=== PATIENT | female | born 1935 | race Caucasian/White ===

== ENCOUNTER 2016-04-04 17:54 | Inpatient (IN) | payer MEDICARE, OTHER ==
[~2016-04-04] VITALS: Ht 154.9 cm; Wt 81.1 kg
[2016-04-04 18:36] VITALS: BP 175/85; PULSE 100; RESP 16; O2SAT 97
--- NOTE | 2016-04-04 19:24 | ED.REPORT ---
HPI-Abd Pain F 40 and Over Date of Service Apr 04, 2016 ED Provider: Dr. Pradeep Qiu MD An 80 year old female with a history of chronic back pain presents to the ED complaining of abdominal pain that began earlier this morning. Her pain radiates from the left side to the right. The abdominal pain is associated with nausea and vomiting. She reports 3 episodes of vomiting today. Patient recently saw a chiropractor and reports feeling similar pain that resolved shortly after onset. She denies fever or abnormal bowel movements. She states that she is currently taking anticoagulates and tramadol. Patient is a difficult historian. Nursing Notes Stated Complaint: ABDOMINAL PAIN Chief Complaint: Female Abdominal Pain Nursing Notes Reviewed: Yes Allergies: Coded Allergies: No Known Allergies (Unverified , 04/04/16) General Time Seen by MD: 19:22 Chief Complaint Abdominal pain Hx Obtained From: Patient Arrived By: Walk-in Sudden in Onset?: No Onset Occurred: 9 - 12 hours ago Symptom Duration: Since onset Progression since Onset: Unchanged Location: : Diffuse Quality: Painful Radiation: : Does not radiate Severity: Current: Mild Severity: Maximum: Mild Associated with: Reports: Nausea, Vomiting, Denies: Fever (x) Pertinent Negative: Pt denies other symptoms Recent Healthcare: No recent doctor visit, No recent hospitalization Risk Factors )( AAA Risk Stratification Risk factors reviewed Past Medical History Past Medical History Chronic back pain Reports: Coronary artery disease, Hyperlipidemia, Hypertension, Denies: Cancer, Diabetes mellitus Past Surgical History None reported. Smoking History Unknown if Ever Smoker Social History Other Social History: Good social support, Local resident Ambulatory Status Independent Review of Systems Constitutional: Denies: Chills, Fever Respiratory: Denies: Shortness of breath Cardiovascular: Denies: Chest pain GI: Reports: Abdominal pain, Nausea, Vomiting Complete sys rev & neg: except as marked. Neurologic: Denies: Change LOC Physical Exam Vital Signs Vital Signs (First) Date Time Temp Pulse Resp B/P Pulse Ox O2 Delivery O2 Flow Rate FiO2 04/04/16 18:36 36.1 100 16 175/85 97 Room Air Initial VS: Reviewed Head / Eyes: Atraumatic, Normocephalic, PERRL Extremities: Vascular intact, Neuro intact, No tenderness Skin: Warm, Dry, No cyanosis Neurologic: Alert, Oriented, Nonfocal Psychiatric: Mood/affect normal, Behavior normal, Normal thought content General/Constitutional: Awake, Alert Respiratory / Chest: Atraumatic, Breath sounds NL, Breath sounds = bilat, No respiratory distress Cardiovascular: Heart rate NL, Regular rhythm, Heart sounds NL Lower Ext Edema: Positive: Bilateral 1+ Abdomen: Atraumatic, Soft, No guarding Tenderness/Guarding/Rebound: Positive: Tender diffuse Back: Atraumatic, Inspection NL Interpretation & Diagnostics Lab Results Interpretation Result Diagram: 04/04/16193304/04/161933 Test 04/04/16 19:34 04/04/16 20:05 04/04/16 21:09 White Blood Count 16.7th/mm3 (3.8-10.1) Red Blood Count 4.99mil/mm3 (3.90-5.20) Hemoglobin 14.7g/dL (12.0-15.6) Hematocrit 44.0% (35.0-46.0) Mean Corpuscular Volume 88.2fL (81-100) Mean Corpuscular Hemoglobin 29.5pg (27.0-35.0) Mean Corpuscular Hemoglobin Concent 33.4% (32.0-37.0) Red Cell Distribution Width 14.5% (12.3-15.4) Platelet Count 314bil/L (150-400) Neutrophils (%) (Auto) 78.0% (40-74) Lymphocytes (%) (Auto) 12.9% (14-46) Monocytes (%) (Auto) 8.3% (4-12) Eosinophils (%) (Auto) 0.3% (0-5) Basophils (%) (Auto) 0.2% (0-3) Sodium Level 135mEq/L (134-144) Potassium Level 3.7mEq/L (3.5-5.2) Chloride Level 93mEq/L (97-108) Carbon Dioxide Level 26mmol/L (18-29) Blood Urea Nitrogen 18mg/dL (8-27) Creatinine 0.77mg/dL (0.57-1.00) Estimat Glomerular Filtration Rate 103mL/min (>59) Glucose Level 131mg/dL (60-99) Calcium Level 9.9mg/dL (8.5-10.1) Magnesium Level 1.8mg/dL (1.6-2.6) Total Bilirubin 0.6mg/dL (0.0-1.2) Aspartate Amino Transf (AST/SGOT) 18U/L (0-50) Alanine Aminotransferase (ALT/SGPT) 10U/L (0-32) Alkaline Phosphatase 62U/L (25-165) Total Protein 7.9g/dL (6.4-8.4) Albumin 4.5g/dL (3.4-5.0) Lipase 15U/L (13-60) Hold Purple Top Tube Received (Received) Hold Blue Top Tube Received (Received) Hold [place] Top Tube Received (Received) Hold [place] Top Tube Received (Received) Urine Color Yellow (YELLOW) Urine Appearance Hazy (CLEAR,HAZY) Urine pH 6.0 (5.0-8.0) Urine Specific [place] 1.025 (1.003-1.035) Urine Protein Negativemg/dL (NEG,TRACE) Urine Glucose (UA) Negativemg/dL (NEGATIVE) Urine Ketones Tracemg/dL (NEGATIVE) Urine Occult Blood Trace (NEGATIVE) Urine Nitrite Negative (NEGATIVE) Urine Bilirubin Negative (NEGATIVE) Urine Urobilinogen Normalmg/dL (NORMAL) Urine Leukocyte Esterase Trace (NEGATIVE) Urine RBC 0-2/hpf (0-2) Urine WBC 0-5/hpf (0-5) Urine Epithelial Cells None/hpf (NONE-MOD) Urine Crystals None seen (NONE SEEN) Urine Bacteria Few/hpf (NONE-FEW) Urine Hyaline Casts None/lpf (NONE) Urine Granular Casts None seen (NONE SEEN) Urine Waxy Casts None seen (NONE SEEN) Urine Red Blood Cell Casts None seen (NONE SEEN) Urine White Blood Cell Casts None seen (NONE SEEN) Urine Mucus None seen (None Seen) Urine Trichomonas None seen (NONE SEEN) Urine Yeast None (NONE SEEN) Urinalysis Comment None Urine Culture Reflexed Indicated ECG Interpretation ECG Interpretation: Sinus Rhythm Rate 94 Time: 19:58 Interpreted by: ED physician CT Abd / Pelvis Interpretation IMPRESSION: 1. Multiple dilated loops of small bowel compatible with small bowel obstruction. 2. No free fluid or air. 3. Sequela prior granulomatous disease involving the right lung, mediastinal and hilar lymph nodes in the spleen. 4. Atherosclerosis including the visualized coronary vasculature. Dictated by: Carmela Vazquez MD, PhD on 04/04/2016 at 21:34 Study type: Abdominal CT IV contrast, Abdom CT oral contrast Interpretation / Wet Read by: Interpret - Radiologist Re-Eval/Medical Decision Re-Evaluation/Progress : Time of Eval: 22:14 Patient Status: Condition improved Re-Evaluation/Progress Note: Patient is rechecked. She is informed of her CT results and diagnosis. All of the patient's questions are addressed. She understands and agrees with the treatment plan to admit. Consultation : Referral / Consult Name: Tiara Albarado DO Consulted With: Hospitalist Call Returned at: 22:50 Nurse Case Management: Will see patient, Agrees with eval, Agrees with plan, Accepts admit Counseled Regarding: Diagnosis, Lab results, Need for admission Discharge & Departure Primary Impression: Small bowel obstruction Disposition: ADMITTED TO HOSPITAL Discharge Condition All VS Reviewed: Yes Condition: Stable Referrals: [facility] Scribe Attestation Portions of this note were transcribed by Carrie Hurd. I, Dr. Qiu personally performed the history, physical exam and medical decision-making; I reviewed and confirmed the accuracy of the information in the transcribed note. Signed by: Angel Meraz, 04/04/16 2255. Pradeep Qiu MD Apr 04, 2016 19:24 CARRIE HURD Apr 04, 2016 19:41
[2016-04-04] MEDS ORDERED: Ondansetron 2 mg/mL 2 mL Inj IVPUSH PRN (19:40)
[2016-04-04 20:44] LABS: BASOPHILS % (AUTO) 0.2 % (0-3); EOSINOPHILS % (AUTO) 0.3 % (0-5); MONOCYTES % (AUTO) 8.3 % (4-12); Mean Corpuscular Hemoglobin 29.5 pg (27.0-35.0); Mean Corpuscular Volume 88.2 fL (81-100); Platelet Count 314 bil/L (150-400)
[2016-04-04 20:54] LABS: Magnesium 1.8 mg/dL (1.6-2.6)
[2016-04-04 21:24] VITALS: BP 170/80; PULSE 99; RESP 17; O2SAT 98
[2016-04-04 21:37] LABS: APPEARANCE,URINE HAZY (CLEAR,HAZY); COLOR,URINE YELLOW (YELLOW); OCCULT BLOOD,URINE TRACE (NEGATIVE); UROBILINOGEN,URINE NORMAL (NORMAL)
--- NOTE | 2016-04-04 21:42 | DRSVH ---
PROCEDURE: CT ABDOMEN AND PELVIS WITH CONTRAST ([id number]) INDICATIONS: abd pain TECHNIQUE: After the administration of intravenous contrast, 5 mm thick sections acquired from the diaphragm to the symphysis. 5 mm coronal and sagittal reformats were acquired. For radiation dose reduction, the following was used: automated exposure control, adjustment of mA and/or kV according to patient siz e. COMPARISON: None. FINDINGS: Image quality: Excellent. ABDOMEN: Lung bases: Lung bases are clear. Calcified mediastinal and right hilar lymph nodes are noted kan tible sequela prior granulomatous disease. Calcified granulomas noted in the right lung base. Heart size is normal. Solid organs: Liver and spleen are normal in size and enhancement. Punctate calcifications noted in the spleen compatible with sequela prior granulomatous disease. Gallbladder is within normal limits. Biliary system is non dilated. Pancreas enhances normally. No adrenal nodules. Kidneys demonstrat e normal size and enhancement, without hydronephrosis. Peritoneum and bowel: Multiple dilated loops of small bowel are noted. Loops of small bowel are dil ated up to 3.9 cm in diameter. The transition zone to normal caliber small bowel is noted in the pro ximal to mid ileum. No bowel wall thickening is identified. No free fluid or air. Scattered diverti culi noted in the colon without evidence of diverticulitis. The appendix is normal. Nodes and vessels: No retroperitoneal or mesenteric adenopathy by size criteria. Aorta and inferior vena cava are normal in size. Scattered atherosclerotic ossifications in the abdominal and pelvic va sculature. Miscellaneous: No ventral hernias. PELVIS: Genitourinary: Bladder wall thickness is normal. Miscellaneous: No inguinal hernias or adenopathy. Bones: No suspicious bony lesions. No vertebral body compression fractures. Degenerative disc disea se and facet arthropathy are noted in the spine. IMPRESSION: 1. Multiple dilated loops of small bowel compatible with small bowel obstruction. 2. No free fluid or air. 3. Sequela prior granulomatous disease involving the right lung, mediastinal and hilar lymph nodes i n the spleen. 4. Atherosclerosis including the visualized coronary vasculature. Dictated by: Carmela Vazquez MD, PhD on 04/04/2016 at 21:34 Approved by: Carmela Vazquez MD, PhD on 04/04/2016 at 21:41
[2016-04-04 22:55] VITALS: BP 170/80; PULSE 99; RESP 17; O2SAT 98
[2016-04-04] MEDS ORDERED: Alum-Mag Hydrox-Simeth 30 mL Suspension PO PRN (23:05)
[2016-04-04] MEDS ORDERED: Polyethylene Glycol (PEG) 17 Gm Powder PO PRN (23:05)
[2016-04-04] MEDS ORDERED: Acetaminophen IV 1,000 MG in IV Premix 1 EACH IV PRN (23:10)
[2016-04-04 23:34] VITALS: BP 162/89; PULSE 101; RESP 20; O2SAT 97
[2016-04-05] VITALS (8 sets, daily range): BP systolic 147–164; BP diastolic 80–93; PULSE 78–100; RESP 18–20; O2SAT 96–100
--- NOTE | 2016-04-05 00:21 | PCM.HPMED ---
Subjective Date of Service Apr 04, 2016 Primary Provider: Admitting Physician: Tiara Albarado DO Primary Care Physician: Ryan Ocampo MD Attending Physician: Tiara Albarado DO Admit Status: From the Emergency Department Chief Complaint: Abdominal Pain, Nausea and Vomiting History of Present Illness: 80yo woman presented to the ED with complaint of abdominal pain since earlier in the morning with associated nausea and vomiting. The pain radiates from the left side to the right. Vomiting x3 today. She denies fever or abnormal bowel movements. She reports taking tramadol and an anticoagulant. Her PCP is Review of Systems: 14point review of systems was obtained and is negative except as above. Allergies Coded Allergies: No Known Allergies (Unverified , 04/04/16) PMH Chronic back pain Coronary artery disease, Hyperlipidemia, Hypertension, Hypothyroidism Denies: Cancer, Diabetes mellitus Surgical History None Social History Hx Alcohol Use: No Hx Substance Use: No Smoking Status: Unknown if Ever Smoker Exam Vital Signs Vital Sign - Last Date Time Temp Pulse Resp B/P Pulse Ox O2 Delivery O2 Flow Rate FiO2 04/04/16 22:55 36.6 99 17 170/80 98 Room Air Exam General: Alert, Oriented X3, Cooperative, No Acute Distress Head: Normocephalic, atraumatic Eyes: PERRLA, EOMI, sclera anicteric ENT: Mucous Membranes Moist/[place] Chest & Lungs: Clear to auscultation bilaterally with no crackles, wheezes, or rhonchi. Cardiovascular: Regular Rate/Rhythm, Normal S1, Normal S2, No Murmurs/Rubs/ Gallops Abdomen: Tender at RUQ and left side, Non-distended, No masses, Normoactive bowel tones, Soft Extremities: No cyanosis/clubbing/edema bilaterally Neurological: Grossly Neurologically Intact Lab and Diagnostics Labs Laboratory Tests Test 04/04/16 19:34 04/04/16 20:05 04/04/16 21:09 White Blood Count 16.7th/mm3 (3.8-10.1) Red Blood Count 4.99mil/mm3 (3.90-5.20) Hemoglobin 14.7g/dL (12.0-15.6) Hematocrit 44.0% (35.0-46.0) Mean Corpuscular Volume 88.2fL (81-100) Mean Corpuscular Hemoglobin 29.5pg (27.0-35.0) Mean Corpuscular Hemoglobin Concent 33.4% (32.0-37.0) Red Cell Distribution Width 14.5% (12.3-15.4) Platelet Count 314bil/L (150-400) Neutrophils (%) (Auto) 78.0% (40-74) Lymphocytes (%) (Auto) 12.9% (14-46) Monocytes (%) (Auto) 8.3% (4-12) Eosinophils (%) (Auto) 0.3% (0-5) Basophils (%) (Auto) 0.2% (0-3) Sodium Level 135mEq/L (134-144) Potassium Level 3.7mEq/L (3.5-5.2) Chloride Level 93mEq/L (97-108) Carbon Dioxide Level 26mmol/L (18-29) Blood Urea Nitrogen 18mg/dL (8-27) Creatinine 0.77mg/dL (0.57-1.00) Estimat Glomerular Filtration Rate 103mL/min (>59) Glucose Level 131mg/dL (60-99) Calcium Level 9.9mg/dL (8.5-10.1) Magnesium Level 1.8mg/dL (1.6-2.6) Total Bilirubin 0.6mg/dL (0.0-1.2) Aspartate Amino Transf (AST/SGOT) 18U/L (0-50) Alanine Aminotransferase (ALT/SGPT) 10U/L (0-32) Alkaline Phosphatase 62U/L (25-165) Total Protein 7.9g/dL (6.4-8.4) Albumin 4.5g/dL (3.4-5.0) Lipase 15U/L (13-60) Hold Purple Top Tube Received (Received) Hold Blue Top Tube Received (Received) Hold [place] Top Tube Received (Received) Hold [place] Top Tube Received (Received) Urine Color Yellow (YELLOW) Urine Appearance Hazy (CLEAR,HAZY) Urine pH 6.0 (5.0-8.0) Urine Specific [place] 1.025 (1.003-1.035) Urine Protein Negativemg/dL (NEG,TRACE) Urine Glucose (UA) Negativemg/dL (NEGATIVE) Urine Ketones Tracemg/dL (NEGATIVE) Urine Occult Blood Trace (NEGATIVE) Urine Nitrite Negative (NEGATIVE) Urine Bilirubin Negative (NEGATIVE) Urine Urobilinogen Normalmg/dL (NORMAL) Urine Leukocyte Esterase Trace (NEGATIVE) Urine RBC 0-2/hpf (0-2) Urine WBC 0-5/hpf (0-5) Urine Epithelial Cells None/hpf (NONE-MOD) Urine Crystals None seen (NONE SEEN) Urine Bacteria Few/hpf (NONE-FEW) Urine Hyaline Casts None/lpf (NONE) Urine Granular Casts None seen (NONE SEEN) Urine Waxy Casts None seen (NONE SEEN) Urine Red Blood Cell Casts None seen (NONE SEEN) Urine White Blood Cell Casts None seen (NONE SEEN) Urine Mucus None seen (None Seen) Urine Trichomonas None seen (NONE SEEN) Urine Yeast None (NONE SEEN) Urinalysis Comment None Urine Culture Reflexed Indicated Microbiology 04/04/16 Urine Culture, Received Pending Result Diagram: 04/04/16193304/04/161933 X-Rays, CTs and MRIs CT w/ contrast of abd/pelv IMPRESSION: 1. Multiple dilated loops of small bowel compatible with small bowel obstruction. 2. No free fluid or air. 3. Sequela prior granulomatous disease involving the right lung, mediastinal and hilar lymph nodes in the spleen. 4. Atherosclerosis including the visualized coronary vasculature. Dictated by: Carmela Vazquez MD, PhD on 04/04/2016 at 21:34 12-lead ECG NSR rate of 94 Assessment & Plan 80yo woman with SBO that started with abdominal pain, nausea, and vomiting on the morning of 04/04/16, confirmed by CT of abdomen and pelvis 1. SBO -NPO -NS IV 80mls/hr -Ondansetron 4mg Q4hr PRN IV for nausea and vomiting -Acetaminophen 1000mg IV q6h prn for pain -this is likely to resolve with bowel rest, if symptoms worsen consider surgical consult -repeat BMP in morning 2. Leukocytosis, likely acute phase reaction -repeat CBC with diff in the morning 3. Hypertension, 170/80 here, asymptomatic -Metoprolol 5mg IV push PRN for SBP greater than 160 or DBP greater than 90 4. Hyperlipidemia, hold home meds while NPO 5. History of nosebleeds with NSAIDs -avoid NSAIDs 6. Hypothyroidism, hold home meds while NPO Bowel regimen as needed Pain Evaluation: Adequate Pain Control VTE Prophylaxis: SCDs Resuscitation Status: DNR/DNI:Do Not Resuscitate/Intubate Limited Interventions: Medications and IV Fluid Attending Statement The patient was seen and examined together with house staff on 04/04/2016 and I agree with the history, exam and plan as outlined in the note above. Mynor Serna DO Apr 05, 2016 00:13 Tiara Albarado DO Apr 05, 2016 02:41
[2016-04-05] MEDS: 0.9% Sodium Chloride 1,000 ML IV SCH ×2 (01:06→14:55)
[2016-04-05] MEDS: Ondansetron 2 mg/mL 2 mL Inj IVPUSH PRN ×4 (01:45→13:40)
[2016-04-05] MEDS ORDERED: TRAM50TA2 PO (01:58)
[2016-04-05] MEDS ORDERED: OMEG1CAP56 PO (01:58)
[2016-04-05] MEDS ORDERED: LEVO25TA5 PO (01:58)
[2016-04-05] MEDS ORDERED: HYDR25TA4 PO (01:58)
[2016-04-05] MEDS ORDERED: TIMO1DRO4 BOTH_EYES (01:58)
[2016-04-05] MEDS ORDERED: SIMV40TA5 PO (01:58)
[2016-04-05] MEDS ORDERED: CYCL5TAB PO (01:58)
[2016-04-05] MEDS ORDERED: BRIM10DR14 BOTH_EYES (01:58)
[2016-04-05] MEDS ORDERED: RANI150T11 PO (01:58)
[2016-04-05] MEDS ORDERED: LISI40TA PO (01:58)
[2016-04-05] MEDS ORDERED: DOXY25TA46 PO (01:58)
[2016-04-05] MEDS ORDERED: CHOL200047 PO (01:58)
[2016-04-05] MEDS: MeTOProlol 1 mg/mL 5 mL Inj IVPUSH PRN ×2 (04:27→10:13)
--- NOTE | 2016-04-05 04:36 | NUR ---
Admit Patient arrived to [facility] room 1028 around 2330. Able to stand and walk from ER stretcher to [facility] bed. Gait steady. A&Ox4, answering questions appropriately. IV patent and infusing appropriately. Admit completed with patient to best of her ability as patient is a poor historian. Med rec complete. Cristiano given x2 for N/V. Received IV Tylenol for pain management, but states it gave her a "sour stomach". Paged Dr. Serna @ [phone]. Received order for Morphine 2mg IVP once. Aware of NPO status and compliant. Oriented to room and call light. Addendum: 04/05/16 at 0636 by GILES PAEZ RN Patient would like to hold off on Morphine dose at this time. Patient aware to ask for it when she feels like she needs it. Will pass on info to oncoming day shift RN. [facility] page sent to Dr. Serna to notify him of med rec being complete. Metoprolol IVP PRN given per MD orders for increased BP.
[2016-04-05 06:34] LABS: BASOPHILS % (AUTO) 0.2 % (0-3); EOSINOPHILS % (AUTO) 0.5 % (0-5); MONOCYTES % (AUTO) 11.8 % (4-12); Mean Corpuscular Hemoglobin 29.9 pg (27.0-35.0); Mean Corpuscular Volume 87.6 fL (81-100); Platelet Count 324 bil/L (150-400)
[2016-04-05] MEDS: Heparin 5,000 Unit/mL Inj SUBQ SCH ×2 (08:30→16:30)
--- NOTE | 2016-04-05 09:27 | NUR ---
Social Work: Initial Assessment Data: Pt is an 80 y/o female admitted for SBO. Pt's PCP is Dr Ocampo, pt's insurance is Medicare with [employer] supp. Readmit score not listed. EMR reviewed. HYBRID DERIVATIVES TRADER met with pt at bedside, role explained. Pt states that she lives alone in a single story home where she uses no DME. Pt states she has no hx of HH or SNF, drives, has no LTC or VA benefits, and is not a caregiver. Pt states she has been moving around in the room during hospitalization. HYBRID DERIVATIVES TRADER will continue to follow for possible HH need. Assessment: Pt who is independent at baseline. Plan: Pt will d/c home via POV when medically stable with daughter. HYBRID DERIVATIVES TRADER will continue to follow for possible HH need. SHARRON Weiss Addendum: 04/05/16 at 0929 by ROSA M ACOSTA SS Amended: Links added.
[2016-04-05] MEDS: BRIMONIDINE 0.15% BOTH_EYES SCH ×3 (10:06→20:53)
[2016-04-05] MEDS: Lisinopril 40 Tablet PO SCH (10:08)
--- NOTE | 2016-04-05 10:42 | PCM.PNMED ---
Subjective Date of Service Apr 05, 2016 Subjective - Pt seen and examined this morning. - c/o diffuse abdominal pain and nausea. States that pain is less than yesterday. - Denies any more episodes of vomiting since yesterday. Exam Vital Signs Vital Sign - Last Date Time Temp Pulse Resp B/P Pulse Ox O2 Delivery O2 Flow Rate FiO2 04/05/16 10:07 87 04/05/16 09:43 36.5 18 164/80 98 Room Air Intake and Output 04/04/16 04/04/16 04/05/16 Cumulative From/Thru 15:00 23:00 07:00 04/04/16 18:36 - 04/05/16 06:38 Intake Total 309 ml 309 ml Output Total 580 ml 580 ml Balance -271 ml -271 ml Intake Oral 0 ml 0 ml IV Total 309 ml 309 ml Output Urine Total 250 ml 250 ml Emesis 330 ml 330 ml # Voids 2 2 # Bowel Movements 0 0 Exam General: Alert, Oriented X3, Cooperative, No Acute Distress Head: Normocephalic, atraumatic Eyes: PERRLA, EOMI, sclera anicteric ENT: Mucous Membranes Moist/[place] Chest & Lungs: Clear to auscultation bilaterally with no crackles, wheezes, or rhonchi. Cardiovascular: Regular Rate/Rhythm, Normal S1, Normal S2, No Murmurs/Rubs/ Gallops Abdomen: Tender at RUQ and left side, Non-distended, No masses, Normoactive bowel tones, Soft Extremities: No cyanosis/clubbing/edema bilaterally Neurological: Grossly Neurologically Intact IVs and Medications Medications Reviewed: Medications were reviewed in detail Lab and Diagnostics Result Diagram: 04/05/1661704/05/16617 X-Rays, CTs and MRIs CT w/ contrast of abd/pelv IMPRESSION: 1. Multiple dilated loops of small bowel compatible with small bowel obstruction. 2. No free fluid or air. 3. Sequela prior granulomatous disease involving the right lung, mediastinal and hilar lymph nodes in the spleen. 4. Atherosclerosis including the visualized coronary vasculature. Dictated by: Carmela Vazquez MD, PhD on 04/04/2016 at 21:34 12-lead ECG NSR rate of 94 Assessment & Plan 80 year old woman with SBO that started with abdominal pain, nausea, and vomiting on the morning of 04/04/16, confirmed by CT of abdomen and pelvis Small bowel obstruction - NPO - NS IV 80mls/hr - Ondansetron 4mg Q4hr PRN IV for nausea and vomiting - Acetaminophen 1000mg IV q6h prn for pain - this is likely to resolve with bowel rest, if symptoms worsen consider surgical consult Leukocytosis, likely acute phase reaction - WBC still elevated but trendign down 12.3 <-- 16.7 - Normal neutrophils Hypertension - BP:164 / 80 - Metoprolol 5mg IV push PRN for SBP greater than 160 or DBP greater than 90 Hyperlipidemia, - statins on hold as she is NPO History of nosebleeds with NSAIDs - avoid NSAIDs Hypothyroidism, hold home meds while NPO Bowel regimen as needed Pain Evaluation: Adequate Pain Control VTE Prophylaxis: SCDs VTE Mechanical Devices: Intermittant Pneumatic CD Resuscitation Status: DNR/DNI:Do Not Resuscitate/Intubate Limited Interventions: Medications and IV Fluid Jasen Bocanegra MD Apr 05, 2016 10:42
[2016-04-05] MEDS: Timolol 0.5% 5 mL Ophthalmic Solution BOTH_EYES SCH ×2 (11:22→20:30)
[2016-04-05] MEDS: Pantoprazole 20 mg ER24 Tablet PO SCH (20:30)
[2016-04-05] MEDS: MetoCLOpramide 5 mg/mL 2 mL Inj IVPUSH PRN (20:52)
[2016-04-06] VITALS (7 sets, daily range): BP systolic 106–159; BP diastolic 66–89; PULSE 75–97; RESP 18–20; O2SAT 95–98
[2016-04-06] MEDS: Heparin 5,000 Unit/mL Inj SUBQ SCH ×3 (00:30→16:30)
--- NOTE | 2016-04-06 01:02 | NUR ---
Nausea/refusal Pt reporting nausea/vomiting has subsided after administration of 5mg Reglan IVP at the beginning of the shift. Pt refused to have heparin shot despite education, pt feels she "does not need blood thinner" since she is up walking so often. Pt also declining to wear SCDs for same reason. Addendum: 04/06/16 at 0113 by CARLY RUBY RN Pt had 150 cc of light brown liquid stool.
[2016-04-06] MEDS: MetoCLOpramide 5 mg/mL 2 mL Inj IVPUSH PRN ×2 (02:21→10:19)
[2016-04-06] MEDS: 0.9% Sodium Chloride 1,000 ML IV SCH ×2 (02:21→14:13)
[2016-04-06] MEDS: Lisinopril 40 Tablet PO SCH (10:06)
[2016-04-06] MEDS: Pantoprazole 20 mg ER24 Tablet PO SCH ×2 (10:06→22:15)
[2016-04-06] MEDS: BRIMONIDINE 0.15% BOTH_EYES SCH ×3 (10:07→20:30)
[2016-04-06] MEDS: Timolol 0.5% 5 mL Ophthalmic Solution BOTH_EYES SCH ×2 (10:08→20:30)
--- NOTE | 2016-04-06 15:44 | NUR ---
Social Work Continued Discharge Planning: SW met with patient at bedside to discuss discharge plan. Patient resides home alone and SW discussed HHC options for patient at discharge. Patient states choice to discharge home with [facility] services. [facility] choice list offered. Patient states choice as HHC via [facility]. SW provided face to face to HHC rep Ry. Access also provided. SW to follow up with [facility] company upon discharge. PLAN: Home with [facility] via [facility], Access provided and face to face given. SW to follow. Pham MCDERMOTT
--- NOTE | 2016-04-06 19:22 | PCM.PNMED ---
Subjective Date of Service Apr 06, 2016 Exam Vital Signs Vital Sign - Last Date Time Temp Pulse Resp B/P Pulse Ox O2 Delivery O2 Flow Rate FiO2 04/06/16 17:07 36.8 84 20 159/83 96 Room Air Intake and Output 04/05/16 04/05/16 04/06/16 Cumulative From/Thru 15:00 23:00 07:00 04/04/16 18:36 - 04/06/16 05:48 Intake Total 0 ml 1954 ml 2263 ml Output Total 1250 ml 750 ml 2580 ml Balance -1250 ml 1204 ml -317 ml Intake Oral 0 ml 0 ml 0 ml IV Total 1954 ml 2263 ml Output Urine Total 1000 ml 500 ml 1750 ml Stool Total 150 ml 150 ml Emesis 250 ml 100 ml 680 ml # Voids 2 # Bowel Movements 0 Exam Gen.- A+ O 3 no apparent distress. Heavy white female in bed Eyes- open conjunctiva clear, pupils equal nonicteric ENT- ears normal, nose normal Neck- supple/trach midline CVS- RRR no murmur or gallop Lungs- CTA GI-decreased bowel sounds, somewhat tender but no rebound or guarding, generous pannus Musc- moving 4 no obvious deformity Neuro- cranial nerves II through XII intact to gross examination, nonfocal Skin- warm and dry, no rashes/lesions/wounds noted Psych- pleasant and appropriate, Lab and Diagnostics Result Diagram: 04/05/16 0618 04/05/16 0618 X-Rays, CTs and MRIs CT w/ contrast of abd/pelv IMPRESSION: 1. Multiple dilated loops of small bowel compatible with small bowel obstruction. 2. No free fluid or air. 3. Sequela prior granulomatous disease involving the right lung, mediastinal and hilar lymph nodes in the spleen. 4. Atherosclerosis including the visualized coronary vasculature. Dictated by: Carmela Vazquez MD, PhD on 04/04/2016 at 21:34 12-lead ECG NSR rate of 94 Assessment & Plan 80 year old woman with SBO that started with abdominal pain, nausea, and vomiting on the morning of 04/04/16, confirmed by CT of abdomen and pelvis. Clinically resolving, starting clears Pepcid and hopefully will be able to DC IV fluids 04/06 Small bowel obstruction -clinically resolving -Clear liquids, advance diet as tolerated - NS IV 80mls/hr, may DC IV fluids if tolerating by mouth - Ondansetron 4mg Q4hr PRN IV for nausea and vomiting - Acetaminophen 1000mg IV q6h prn for pain - this is likely to resolve with bowel rest, if symptoms worsen consider surgical consult Leukocytosis, likely acute phase reaction - WBC still elevated but trendign down 12.3 <-- 16.7 - Normal neutrophils Hypertension- labile SBP 109-159 04/06 no axn 04/06 - BP:164 / 80 - Metoprolol 5mg IV push PRN for SBP greater than 160 or DBP greater than 90 Hyperlipidemia, - statins on hold as she is NPO History of nosebleeds with NSAIDs - avoid NSAIDs Hypothyroidism, hold home meds while NPO Bowel regimen as needed VTE Prophylaxis: SCDs VTE Mechanical Devices: Intermittant Pneumatic CD Resuscitation Status: DNR/DNI:Do Not Resuscitate/Intubate Limited Interventions: Medications and IV Fluid Bhavik Grimes MD Apr 06, 2016 19:22
[2016-04-06] MEDS: Magnesium Hydroxide 10 mL Oral Concentration PO ONE ×2 (20:46→21:07)
[2016-04-07] MEDS: Heparin 5,000 Unit/mL Inj SUBQ SCH ×2 (00:30→07:51)
[2016-04-07] MEDS: 0.9% Sodium Chloride 1,000 ML IV SCH ×2 (01:10→13:40)
[2016-04-07 03:07] VITALS: BP 100/67; PULSE 80; RESP 18; O2SAT 96
--- NOTE | 2016-04-07 04:20 | NUR ---
Diet MD order for pt to have clear liquid diet, advance as tolerated. Pt so far tolerating water, juice and chicken broth without any nausea. Order to also d/c IV fluids when tolerating PO. Pt is now SL. No pain or other complaints from pt.
[2016-04-07 05:44] VITALS: BP 115/64; PULSE 85; RESP 16; O2SAT 95
[2016-04-07] MEDS: Timolol 0.5% 5 mL Ophthalmic Solution BOTH_EYES SCH (07:50)
[2016-04-07] MEDS: BRIMONIDINE 0.15% BOTH_EYES SCH (07:50)
[2016-04-07] MEDS: Lisinopril 40 Tablet PO SCH (07:51)
[2016-04-07] MEDS: Pantoprazole 20 mg ER24 Tablet PO SCH (07:51)
--- NOTE | 2016-04-07 10:40 | NUR ---
Social Work Readiness for Discharge: Plan remains as home with [facility] services via [facility]. Patient tolerating diet at this time per report in rounds. SW spoke to [facility] rep Raza who was made aware of potential discharge for today. No anticipated discharge needs identified at this time. SW to follow. PLAN: Home with [facility] via [facility], pending clinical course. SW to follow. Pham MCDERMOTT
[2016-04-07 10:50] VITALS: PULSE 82
[2016-04-07 11:09] VITALS: BP 136/85; PULSE 79; RESP 18; O2SAT 96
--- NOTE | 2016-04-07 13:12 | PCM.DIMED ---
Discharge Instructions Date of Service Apr 07, 2016 Dates of Hospitalization Apr 04, 2016 at 22:41 Discharge Diagnosis Discharge Diagnosis Small bowel obstruction Medication Instructions New medication called Reglan/metoclopramide will help empty your stomach. This medication as a side effect of abnormal motion if you notice this stop it immediately the motion abnormality should correct themselves. If you continue the medication the abnormal motions may become permanent. Test Results CT scan showed a small bowel obstruction. This may recur. If he feels the bloating and recurrence try to switch over to the low residual diet or just liquids and take some laxatives to see if it passes. Diet Other (please given instructions for low residual diet) Activity No restrictions Call your provider Other (abdominal pain/bloating/nausea and vomiting) Patient Instructions Slowly resume your regular diet as you feel better. Follow-up Provider: Ryan Ocampo MD Follow-up with PCP in: Other (call for follow-up appointment if you are doing well he may not need to see him.) Attending's Statement This may be an ongoing problem that may require surgical attention in the future. For now to appears that his passed, please try to be vigilant and treat yourself with laxatives and low residual diet and perhaps he may be able to avoid hospitalization. If that fails and you develop persistent nausea and vomiting and cannot hold medications down please come to the hospital to be admitted for IV treatment and further evaluation. Bhavik Grimes MD Apr 07, 2016 13:12
[2016-04-07] MEDS ORDERED: ESOM40CA41 PO (13:19)
[2016-04-07] MEDS ORDERED: MAGN800O PO (13:19)
[2016-04-07] MEDS ORDERED: METO-301 PO (13:19)
--- NOTE | 2016-04-07 13:23 | PCM.DC.MED ---
Discharge Summary Date of Service Apr 07, 2016 Dates of Hospitalization Date of Hospital Admission Apr 04, 2016 at 22:41 Date of Discharge: Apr 07, 2016 Providers: Admitting Physician: Tiara Albarado DO Primary Care Physician: Ryan Ocampo MD Attending Physician: Tiara Albarado DO Diagnosis at Time of Discharge Diagnosis at Time of Discharge Small bowel obstruction Consultations None Procedures XRay, CTs & MRIs CT w/ contrast of abd/pelv IMPRESSION: 1. Multiple dilated loops of small bowel compatible with small bowel obstruction. 2. No free fluid or air. 3. Sequela prior granulomatous disease involving the right lung, mediastinal and hilar lymph nodes in the spleen. 4. Atherosclerosis including the visualized coronary vasculature. Dictated by: Carmela Vazquez MD, PhD on 04/04/2016 at 21:34 ECG 12 Lead NSR rate of 94 Brief History 80yo woman presented to the ED with complaint of abdominal pain since earlier in the morning with associated nausea and vomiting. The pain radiates from the left side to the right. Vomiting x3 today. She denies fever or abnormal bowel movements. She reports taking tramadol and an anticoagulant. Her PCP is Hospital Course 80 year old woman with SBO that started with abdominal pain, nausea, and vomiting on the morning of 04/04/16, confirmed by CT of abdomen and pelvis. Clinically resolving, starting clears Pepcid and hopefully will be able to DC IV fluids 04/06. On discharge are started this patient on Reglan as I think that that will help her with heartburn/reflux symptoms in addition to a PPI. I gave her milk of magnesia to help clear her bowels. After discharging her I noted that her blood pressure was low on our less BP medications than she normally takes at home. This will probably need to be adjusted by primary care provider in the next few days. Small bowel obstruction -clinically resolving 04/06 patient tolerated food and was discharged in stable improved condition 04/07. She was sent home with Reglan, and instructions that if she is bloating she should take milk of magnesia and trying to go to the low residual diet and see if it clears on its own. If she can treat for herself she does not need to come to the hospital. If not and there is no resolution she understands that surgery would be the next option. It is most likely that it was surgery and scarring that caused the problem in the first place if she understands why this is not the desired outcome/solution Leukocytosis, likely acute phase reaction, down to 12.52/5 not rechecked. Hypertension- labile SBP 100-136 04/07, on lisinopril 40 mg QD, may need to have BP medications adjusted this and decreased/stopped Hyperlipidemia, - statins on hold in hospital resumed on discharge History of nosebleeds with NSAIDs- avoid NSAIDs Hypothyroidism, Levoxyl resumed on discharge Bowel regimen as needed Exam Vital Signs (Last) Date Time Temp Pulse Resp B/P Pulse Ox O2 Delivery O2 Flow Rate FiO2 04/07/16 11:09 36.7 79 18 136/85 96 Room Air Test 04/04/16 19:34 04/04/16 20:05 04/04/16 21:09 04/05/16 06:18 Magnesium Level 1.8mg/dL (1.6-2.6) Total Bilirubin 0.6mg/dL (0.0-1.2) Aspartate Amino Transf (AST/SGOT) 18U/L (0-50) Alanine Aminotransferase (ALT/SGPT) 10U/L (0-32) Alkaline Phosphatase 62U/L (25-165) Total Protein 7.9g/dL (6.4-8.4) Albumin 4.5g/dL (3.4-5.0) Lipase 15U/L (13-60) Hold Purple Top Tube Received (Received) Prothrombin Time 10.7sec (8.1-12.5) Prothromb Time International Ratio 1.00ratio Hold Blue Top Tube Received (Received) Hold [place] Top Tube Received (Received) Hold [place] Top Tube Received (Received) Urine Color Yellow (YELLOW) Urine Appearance Hazy (CLEAR,HAZY) Urine pH 6.0 (5.0-8.0) Urine Specific [place] 1.025 (1.003-1.035) Urine Protein Negativemg/dL (NEG,TRACE) Urine Glucose (UA) Negativemg/dL (NEGATIVE) Urine Ketones Tracemg/dL (NEGATIVE) Urine Occult Blood Trace (NEGATIVE) Urine Nitrite Negative (NEGATIVE) Urine Bilirubin Negative (NEGATIVE) Urine Urobilinogen Normalmg/dL (NORMAL) Urine Leukocyte Esterase Trace (NEGATIVE) Urine RBC 0-2/hpf (0-2) Urine WBC 0-5/hpf (0-5) Urine Epithelial Cells None/hpf (NONE-MOD) Urine Crystals None seen (NONE SEEN) Urine Bacteria Few/hpf (NONE-FEW) Urine Hyaline Casts None/lpf (NONE) Urine Granular Casts None seen (NONE SEEN) Urine Waxy Casts None seen (NONE SEEN) Urine Red Blood Cell Casts None seen (NONE SEEN) Urine White Blood Cell Casts None seen (NONE SEEN) Urine Mucus None seen (None Seen) Urine Trichomonas None seen (NONE SEEN) Urine Yeast None (NONE SEEN) Urinalysis Comment None Urine Culture Reflexed Indicated White Blood Count 12.3th/mm3 (3.8-10.1) Red Blood Count 5.08mil/mm3 (3.90-5.20) Hemoglobin 15.2g/dL (12.0-15.6) Hematocrit 44.5% (35.0-46.0) Mean Corpuscular Volume 87.6fL (81-100) Mean Corpuscular Hemoglobin 29.9pg (27.0-35.0) Mean Corpuscular Hemoglobin Concent 34.2% (32.0-37.0) Red Cell Distribution Width 14.6% (12.3-15.4) Platelet Count 324bil/L (150-400) Neutrophils (%) (Auto) 73.0% (40-74) Lymphocytes (%) (Auto) 14.3% (14-46) Monocytes (%) (Auto) 11.8% (4-12) Eosinophils (%) (Auto) 0.5% (0-5) Basophils (%) (Auto) 0.2% (0-3) Sodium Level 136mEq/L (134-144) Potassium Level 4.2mEq/L (3.5-5.2) Chloride Level 92mEq/L (97-108) Carbon Dioxide Level 25mmol/L (18-29) Blood Urea Nitrogen 18mg/dL (8-27) Creatinine 0.84mg/dL (0.57-1.00) Estimat Glomerular Filtration Rate 93mL/min (>59) Glucose Level 152mg/dL (60-99) Calcium Level 9.9mg/dL (8.5-10.1) Discharge Medications Discharge Medications Brimonidine Tartrate (Brimonidine 0.15% Oph Soln) 10 Ml Drops 1 DROP BOTH_EYES BID (Reported) Cholecalciferol (Vitamin D3) (Vitamin D3) 2,000 Unit Capsule 2,000 UNIT PO DAILY (Reported) Esomeprazole Magnesium (Nexium) 40 Mg Capsule.dr 40 MG PO DAILY Prescribed by: DONALD TREADWELL MD Hydrochlorothiazide (Hydrochlorothiazide) 25 Mg Tablet 25 MG PO DAILY (Reported ) Levothyroxine (Levothyroxine) 25 Mcg Tablet 25 MCG PO DAILY (Reported) Lisinopril (Lisinopril) 40 Mg Tablet 60 MG PO DAILY (Reported) [place]-3 Fatty Acids/Fish Oil ([place] 3 1,000 mg Softgel) 1 Each Capsule 1 EACH PO DAILY (Reported) Ranitidine (Zantac) 150 Mg Tablet 75 MG PO up to 4-5x/day (Reported) Simvastatin (Simvastatin) 40 Mg Tablet 40 MG PO HS (Reported) As needed Cyclobenzaprine (Cyclobenzaprine) 5 Mg Tablet 2.5-5 MG PO TID PRN PRN Spasm ( Reported) Doxylamine Succinate (Unisom) 25 Mg Tablet 6.25 MG PO HS PRN PRN For Sleep ( Reported) Magnesium Hydroxide (Milk of Magnesia) 2,400 Mg/10 Ml Oral.susp 2,400 MG PO QID PRN PRN For Constipation Use this medication to help clear your bowels if you feel bloating as it may indicate early obstruction Prescribed by: DONALD TREADWELL MD Metoclopramide (Reglan) 10 Mg Tablet 10 MG PO QID PRN PRN For Dyspepsia or Heartburn Take half to one before meals to help empty stomach. If you notice a movement abnormality (dyskiniesia) stop the medicine and call your doctor. Movement abnormalities will resolve if you stop the medicine Prescribed by: DONALD TREADWELL MD Tramadol (Tramadol) 50 Mg Tablet 25-50 MG PO DAILY PRN PRN For Pain (Reported) Miscellaneous Medications Timolol Maleate/Pf (Timoptic 0.5% Ocudose Drop) 1 Each [place]perette 1 DROP BOTH_ EYES (Reported) Additional med instructions New medication called Reglan/metoclopramide will help empty your stomach. This medication as a side effect of abnormal motion if you notice this stop it immediately the motion abnormality should correct themselves. If you continue the medication the abnormal motions may become permanent. Followup Plan Disposition: Patient going home Follow-up plan Probably should call primary care provider and get blood pressure checked sooner than later. Discharge Diet: Other (please given instructions for low residual diet) Discharge Activity: No restrictions Patient Instructions Slowly resume your regular diet as you feel better. Follow-up Provider: Ryan Ocampo MD Follow-up with PCP in: Other (call for follow-up appointment if you are doing well he may not need to see him.) Time spent Greater than 30 minutes Attending Statement Patient was on far less blood pressure medication here and SBP ranged from 100- 140 on date of discharge and I am resuming HCTZ and lisinopril as she had been taking at home however she was only getting lisinopril 40 mg here with that blood pressure in the hospital. I am concerned that this will need close follow -up and perhaps modification. I only made note of this after the patient had discharged. Patient has received Reglan/metoclopramide for heartburn I warned her of the potential dyskinesis from it and that if she develops that she should stop the medication immediately. It seemed to give her a great deal of relief from nausea and heartburn symptoms that seem to be a recurrent problem for her. copies to: Ryan Ocampo MD, Andris E MD Apr 07, 2016 13:23
--- NOTE | 2016-04-07 15:41 | NUR ---
Discharge Patient discharge home with no questions. Student nurse DC'd IV and it was intact. Discharge instructions given with no questions. Milk of Mag, Nexium, Reglan faxed to [facility] pharmacy in [place] and originals sent with patient. Patient gathered all personal belongings. LOSS PREVENTION LEAD escorted patient out via W/C.
== END 2016-04-07 15:15 | disposition home health service (06) | DRG 390 ==
LOC: SED 17:54 → OSC 22:41
PROVIDERS: ADMIT Internal Medicine; ATTEND Internal Medicine
DX: K56.60 Unspecified intestinal obstruction (principal); I10 Essential (primary) hypertension; E78.5 Hyperlipidemia, unspecified; E03.9 Hypothyroidism, unspecified; I25.10 Atherosclerotic heart disease of native coronary artery without angina pectoris; Z66 Do not resuscitate; D72.829 Elevated white blood cell count, unspecified